=== PATIENT | male | born 1990 | race Two or more races ===

== ENCOUNTER 2019-11-08 11:06 | Emergency (ER) | payer MEDICAID ==
[~2019-11-08] VITALS: Ht 172.7 cm; Wt 70.5 kg
[2019-11-08 12:27] LABS: CLARITY URINE CLEAR (CLEAR); COLOR URINE DARK YELLOW (YELLOW); KETONES URINE NEGATIVE (NEGATIVE); LEUKOCYTE ESTERASE URINE 2+ (NEGATIVE); NITRITE URINE NEGATIVE (NEGATIVE); OCCULT BLOOD URINE NEGATIVE (NEGATIVE); PH URINE 5.5 (4.5-8.0); PROTEIN URINE NEGATIVE (NEGATIVE); SPECIFIC GRAVITY URINE 1.024 (1.005-1.030); UROBILINOGEN URINE 0.2 E.U./dL (0.2-1.0)
[2019-11-08 14:56] VITALS: BP 117/76
== END 2019-11-08 14:58 | disposition home or self-care (01) ==
LOC: ER 11:06
DX: N50.82 Scrotal pain (principal)
CPT/HCPCS: 76870; 81003; 93976; 99284

== ENCOUNTER 2022-02-27 13:01 | Emergency (ER) | payer SELFPAY ==
[~2022-02-27] VITALS: Ht 167.6 cm; Wt 70.0 kg
[2022-02-27] MEDS ORDERED: KETOROLAC 60MG/2ML VIAL IM ONE (13:30)
[2022-02-27] MEDS ORDERED: BACITRACIN ZINC OINT UDPKT TOP ONE (13:30)
[2022-02-27] MEDS ORDERED: TETANUS, DIPHTHERIA, PERTUSSIS VAC/PF 0.5ML (>10YR OLD) IM ONE ×2 (13:30→15:15)
[2022-02-27] MEDS ORDERED: AMOX1TAB16 MT (14:17)
[2022-02-27] MEDS ORDERED: IBUP-2029 MT (14:17)
[2022-02-27] MEDS ORDERED: BACITRACIN ZINC OINT UDPKT TOP NR (15:08)
[2022-02-27] MEDS ORDERED: KETOROLAC 30MG/ML VIAL IM NR (15:09)
[2022-02-27 15:23] VITALS: BP 141/85
== END 2022-02-27 15:23 | disposition home or self-care (01) ==
LOC: ER 13:01
DX: M79.645 Pain in left finger(s) (principal)
CPT/HCPCS: 73140; 90471; 90715; 96372; 99284; J1885

== ENCOUNTER 2023-12-29 13:41 | Emergency (ER) | payer SELFPAY ==
[~2023-12-29] VITALS: Ht 175.3 cm; Wt 68.0 kg
[~2023-12-29 13:41] MED LIST: AMOX1TAB16 MT; IBUP-2029 MT
[2023-12-29 13:49] VITALS: TEMP 98.1; O2SAT 99
[2023-12-29 16:03] LABS: BASOPHILS % 1.1 % (0.0-2.0); EOSINOPHILS % 1.5 % (0.0-5.0); HEMOGLOBIN. 14.8 g/dL (14.0-18.0); LYMPHOCYTES % 32.7 % (20.0-50.0); MEAN CORPUSCULAR HEMOGLOBIN 29.9 pg (28.0-32.0); MEAN CORPUSCULAR HGB CONC 34.4 g/dL (31.0-37.0); MONOCYTES % 6.7 % (2.0-8.0); PLATELET 431 x1000/uL (130-400); RED BLOOD CELL COUNT 4.94 mill/uL (4.7-6.1); RED CELL DISTRIBUTION WIDTH 14.1 % (11.6-14.6); WHITE BLOOD COUNT 7.9 x1000/uL (4.5-11.0)
[2023-12-29 16:10] LABS: CHLORIDE 105 mEq/L (98-107); POTASSIUM 3.8 mEq/L (3.5-5.1); SODIUM 139 mEq/L (136-145)
[2023-12-29 16:11] LABS: CARBON DIOXIDE 24 mEq/L (21-32)
[2023-12-29 16:12] LABS: CALCIUM 10.1 mg/dL (8.7-10.4)
[2023-12-29 16:17] LABS: GLUCOSE 81 mg/dL (70-105); UREA NITROGEN BLOOD 16 mg/dL (9-23)
[2023-12-29] MEDS ORDERED: CEPH500C2 MT (16:48)
[2023-12-29] MEDS ORDERED: IBUP-2030 MT (16:48)
[2023-12-29 17:11] LABS: ERYTHROCYTE SEDIMENTATION RATE 12 mm/hr (0-15)
[2023-12-29 17:30] VITALS: BP 129/74; PULSE 85; RESP 17
== END 2023-12-29 18:54 | disposition home or self-care (01) ==
LOC: ER 13:41
DX: L03.114 Cellulitis of left upper limb (principal); Z79.899 Other long term (current) drug therapy
CPT/HCPCS: 36415; 73130; 80048; 85025; 85651; 99284